=== PATIENT | female | born 1985 | race Two or more races ===

== ENCOUNTER 2019-06-01 13:12 | Day surgery (SDC) | payer OTHER ==
[2019-06-01] VITALS (10 sets, daily range): BP systolic 106–131; BP diastolic 47–80
[~2019-06-01] VITALS: Ht 165.1 cm; Wt 74.8 kg
[~2019-06-01 13:12] MED LIST: ceFAZolin 1gm IVPB IVPB ONE; celeBREX 200mg Cap **SURGERY PATIENTS ONLY ORAL ONE; oxyCONTIN 20mg tab ORAL ONE
[2019-06-01] MEDS ORDERED: IBUPROFEN200 M2 ORAL (14:06)
[2019-06-01] MEDS ORDERED: oxyCONTIN 20mg tab ORAL ONE (14:16)
[2019-06-01] MEDS ORDERED: celeBREX 200mg Cap **SURGERY PATIENTS ONLY ORAL ONE (14:16)
[2019-06-01] MEDS ORDERED: CARTRIDGE STAM1 EACH SQ (14:51)
[2019-06-01] MEDS ORDERED: HYDROmorphone 1mg/ml Carpuject SUBQ PRN (16:15)
[2019-06-01] MEDS ORDERED: Tylenol #3 tab (300mg/30mg) ORAL PRN (16:15)
[2019-06-01] MEDS ORDERED: HYDROcodone/Acetamin 5/325 tab ORAL PRN ×2 (16:15→19:15)
--- NOTE | 2019-06-01 16:15 | Pre-Procedure Note/Attestation ---
Pre-Procedure Note/Attestation Complete Prior to Procedure Planned Procedure: right Procedure Narrative: hip arthroscopy, labral repair Indications for Procedure Pre-Operative Diagnosis: right hip labral tear Attestation I attest that I discussed the nature of the procedure; its benefits; risks and complications; and alternatives (and the risks and benefits of such alternatives ), prior to the procedure, with the patient (or the patient's legal real estate representative). I attest that, if there was a reasonable possibility of needing a blood transfusion, the patient (or the patient's legal real estate representative) was given the [facility] standardized written summary, pursuant to the [employer] [place] Blood Safety Act ([place] Health and Safety Code # 1645, as amended). I attest that I re-evaluated the patient just prior to the surgery and that there has been no change in the patient's H&P, except as documented below: Modesto Barriga MD Jun 01, 2019 16:15
--- NOTE | 2019-06-01 16:15 | Operative Note - PDOC ---
Operative Note Operative Note Pre-op Diagnosis: right hip labral tear Procedure: see op report Post-op Diagnosis: same as pre-op plus Operative Findings: consistent w/pre-op dx studies Anesthesia: general Specimen: none Complications: none Condition: stable Estimated Blood Loss: none Implant(s) used?: Yes Modesto Barriga MD Jun 01, 2019 16:15
[2019-06-01] MEDS ORDERED: Ketorolac 30mg Inj ONE (16:33)
[2019-06-01] MEDS ORDERED: EPINEPHrine 1mg/1ml Amp ONE (16:33)
[2019-06-01] MEDS ORDERED: Kenalog-40 1ml Vial ONE (16:33)
[2019-06-01] MEDS ORDERED: Duramorph PF 5mg/10ml amp ONE (16:34)
[2019-06-01] MEDS ORDERED: Bupivacaine 0.25% Inj 30ml INJ ONE (16:35)
[2019-06-01] MEDS ORDERED: Lidocaine 1% MPF 10mg/ml 5ml ONE (16:40)
[2019-06-01] MEDS ORDERED: Propofol 200mg/20ml IV ONE (16:40)
[2019-06-01] MEDS ORDERED: Midazolam 2mg/2ml Inj ONE (16:40)
[2019-06-01] MEDS ORDERED: fentaNYL 100 mcg/2 mL IV ONE (16:40)
[2019-06-01] MEDS ORDERED: Rocuronium Bromide 50mg/5ml Inj IV ONE (16:43)
--- NOTE | 2019-06-01 16:48 | Anethesia Preoperative Eval ---
Anesthesia Pre-op PMH/ROS General Date of Evaluation: Jun 01, 2019 Anesthesiologist: Derrick ASA Score: ASA 2 Mallampati Score Class I : Soft palate, uvula, fauces, pillars visible Class II: Soft palate, uvula, fauces visible Class III: Soft palate, base of uvula visible Class IV: Only hard plate visible Mallampati Classification: Class II Surgeon: Linus Diagnosis: Right hip internal deragemennj Surgical Procedure: Right hip arthroscopy Anesthesia History: none Family History: no anesthesia problems Allergies: Coded Allergies: No Known Allergies (Unverified , 06/01/19) Medications: see eMAR Patient NPO?: Yes NPO Date: May 31, 2019 NPO Time: 22:00 Past Medical History Cardiovascular: Denies: HTN, CAD, PR, valve dz, arrhythmia, other Pulmonary: Denies: asthma, COPD, ABELINO, other Gastrointestinal/Genitourinary: Reports: GERD; Denies: CRI, ESRD, other Neurologic/Psychiatric: Denies: dementia, CVA, depression/anxiety, TIA, other Endocrine: Reports: DM, hypothyroidism; Denies: steroids, other HEENT: Denies: cataract (L), cataract (R), glaucoma, [place] (L), [place] (R), other Hematology/Immune: Denies: anemia, DVT, bleeding disorder, other Musculoskeletal/Integumentary: Denies: OA, RA, DJD, DDD, edema, other PSxH Narrative: right arm/hand sx Anesthesia Pre-op Phys. Exam Physician Exam Last Vital Signs Date Time Temp Pulse Resp B/P (MAP) Pulse Ox O2 Delivery O2 Flow Rate FiO2 06/01/19 14:03 Room Air 06/01/19 13:46 97.9 68 18 110/64 98 Constitutional: NAD Cardiovascular: RRR Respiratory: CTA Airway Exam Mallampati Score: Class II MO: full ROM: full Teeth: intact Anesthesia Pre-op A/P Labs see chart Urine Test Test 06/01/19 13:25 Urine HCG, Qualitative Negative (NEGATIVE) Risk Assessment & Plan Assessment: ASA II Plan: GA Status Change Before Surgery: No Pre-Antibiotics Drug: Ancef 1g Given Within 1 Hr of Incision: Yes Alma Em MD Jun 01, 2019 16:48
[2019-06-01] MEDS ORDERED: LR 1000ml ONE (17:00)
[2019-06-01] MEDS ORDERED: Neostigmine 1mg/ml 10ml Inj ONE (17:00)
[2019-06-01] MEDS ORDERED: NS Irrig 4000ml IRRIG ONE (17:11)
[2019-06-01] MEDS ORDERED: Glycopyrrolate 0.2mg/ml 1ml Vial ONE (18:45)
[2019-06-01] MEDS ORDERED: D5 1/2NS 1,000 ML IV SCH (19:00)
--- NOTE | 2019-06-01 19:07 | Immediate Post-Op Evaluation ---
Immediate Post-Op Evalulation Immediate Post-Op Evalulation Procedure: R Hip Arthroscopy Date of Evaluation: Jun 01, 2019 Time of Evaluation: 19:28 IV Fluids: 1000 LR Blood Products: 0 Estimated Blood Loss: 20 Urinary Output: 0 Blood Pressure Systolic: 123 Blood Pressure Diastolic: 80 Pulse Rate: 72 Respiratory Rate: 16 O2 Sat by Pulse Oximetry: 100 Temperature (Fahrenheit): 98 Pain Score (1-10): 2 Nausea: No Vomiting: No Complications 0 Patient Status: awake, reacts, patent, extubated, none Hydration Status: adequate Dru Gram Ancef IV Given Within 1 Hr of Incision: Yes Time Given: 17:01 Panchito Woods MD Jun 01, 2019 19:07
--- NOTE | 2019-06-01 19:11 | 48 Hour Post Anesthesia Eval ---
Post Anesthesia Evaluation Procedure: R Hip Arthroscopy Date of Evaluation: Jun 01, 2019 Time of Evaluation: 21:43 Blood Pressure Systolic: 118 0: 76 Pulse Rate: 71 Respiratory Rate: 18 Temperature (Fahrenheit): 98.3 O2 Sat by Pulse Oximetry: 100 Airway: patent Nausea: No Vomiting: No Pain Intensity: 2 Hydration Status: adequate Cardiopulmonary Status: Stable Mental Status/LOC: patient returned to baseline Follow-up Care/Observations: 0 Post-Anesthesia Complications: 0 Follow-up care needed: ready to discharge Panchito Woods MD Jun 01, 2019 19:11
[2019-06-01] MEDS ORDERED: LR 1000ml 1,000 ML IVLG SCH (19:12)
[2019-06-01] MEDS ORDERED: LORazepam Inj 2mg/ml 1ml IV PRN (19:15)
[2019-06-01] MEDS ORDERED: Meperidine 50mg/ml Inj(FOR RIGORS ONLY) IVP PRN (19:15)
[2019-06-01] MEDS ORDERED: HYDROcodone/Acetamin 7.5/325 tab ORAL PRN (19:15)
[2019-06-01] MEDS ORDERED: Hydromorphone 0.5mg/0.5ml inj IVP PRN (19:15)
[2019-06-01] MEDS ORDERED: fentaNYL 100 mcg/2 mL IV PRN (19:15)
[2019-06-01] MEDS ORDERED: Metoclopramide 10mg/2ml Inj IVP PRN (19:15)
[2019-06-01] MEDS ORDERED: Labetalol 5mg/ml 20ml vial IV PRN (19:15)
[2019-06-01] MEDS ORDERED: Ketorolac 30mg Inj IV PRN ×2 (19:15)
[2019-06-01] MEDS ORDERED: Midazolam 2mg/2ml Inj IVP PRN (19:15)
[2019-06-01] MEDS ORDERED: Acetaminophen (Non formulary) 100 ML IV ONE (19:15)
[2019-06-01] MEDS ORDERED: oxyCODONE HCL/Acetaminophen 5/325mg ORAL PRN (19:15)
[2019-06-01] MEDS ORDERED: DiphenhydrAMINE 50mg/ml Inj IVP PRN (19:15)
[2019-06-01] MEDS ORDERED: Atropine Sulfate 0.4mg/ml inj IVP PRN (19:15)
--- NOTE | 2019-06-02 | Operative Note - Dictated ---
DATE OF OPERATION: 06/01/2019 PREOPERATIVE DIAGNOSIS: Right hip labral tear. POSTOPERATIVE DIAGNOSIS: Right hip labral tear. PROCEDURE: 1. Right hip arthroscopy, synovectomy. 2. Right hip anterior labral stabilization/repair. 3. Gentle chondroplasty. SURGEON: Modesto Barriga M.D. ANESTHESIA: General. INDICATION FOR PROCEDURE: The patient is a pleasant 34-year-old female with progressive right hip pain, who was diagnosed with a labral tear, which became more symptomatic subsequent to an accident. She subsequently elected to undergo right hip arthroscopic labral stabilization. Risks, limitations, expectations, and complications of the procedure were discussed in detail. All questions were addressed. DESCRIPTION OF PROCEDURE: After informed consent was obtained, the patient was brought to the operating room. The patient was placed under general anesthesia. Right hip was prepped and draped in a sterile manner. Time-out was performed. The patient was then carefully placed on the fracture table. Hip was distracted using fluoroscopy. The right hip was then prepped and draped in a sterile manner. Time-out was taken, however, note was taken of the traction time. Spinal needle was then placed for the lateral portal. This was then dilated and cannula was placed. Using inside-out technique, a second anterolateral portal was established. Once this was done, the capsule was released and was noted to be real calcified ultimately requiring combination of scalpel, ArthroCare, and shaver to debride to allow better visualization of the acetabulum. There was a significant tear of the anterior labrum with a portion of it left over. Some of this superiorly and posteriorly was pretty calcified. Once the labrum was circumferentially identified, attention was turned towards the repair. Two anchors were then placed fashion given the fibrotic and stiff nature of the labrum. Once the labrum was secured, the chondral labral surface along the anterosuperior margin was debrided down of any loose chondral flaps until stable flaps. It was nice and secured at the conclusion. Instruments were removed. Portal sites were closed with 3-0 Monocryl sutures. Steri-Strips and sterile dressing were applied. Modesto Barriga M.D. DR: JEAN CLAUDE JOB#: [id number] CC:
--- NOTE | 2019-06-04 12:09 | Diagnostic Imaging Report ---
Indication: Intraoperative imaging COMPARISON: None FINDINGS: Multiple fluoroscopic images were obtained intraoperatively. Fluoroscopic time 33 seconds. 2 fluoroscopic images of the right hip obtained with a needle projected over the joint space. IMPRESSION: Intraoperative imaging as described above
== END 2019-06-01 21:18 | disposition home or self-care (01) ==
LOC: SUR 13:12
DX: S73.101A Unspecified sprain of right hip, initial encounter (principal); K21.9 Gastro-esophageal reflux disease without esophagitis; E11.9 Type 2 diabetes mellitus without complications; E03.9 Hypothyroidism, unspecified
CPT/HCPCS: 29916; 73501; 76000; 81025; 82962; J0171; J0690; J1885; J2250; J2405; J2704; J2710; J3010; J3301; J3490; 94003; 94150